=== PATIENT | female | born 1980 | race Caucasian/White ===

== ENCOUNTER 2022-05-20 20:00 | Day surgery (SDCO) | payer OTHER ==
[~2022-05-20] VITALS: Ht 163 cm; Wt 56.0 kg
[~2022-05-20 20:00] MED LIST: VIBRAMYCIN100 M1 PO
[2022-05-20 20:39] LABS: BASOPHIL 0.3 % (0-2); EOSINOPHIL 3.5 % (0-5); HCT 45.2 % (37.0-47.0); HGB 15.6 g/dl (12.5-16.0); LYMPHOCYTE 15.9 % (15-48); MCH 29.2 pg (25.0-31.0); MCHC 34.5 g/dL (32.0-36.0); MCV 84.5 fL (78.0-100.0); MONOCYTE 6.1 % (0-12); MPV 9.2 fL (6.0-9.5); NEUTROPHIL 73.7 % (41-80); NRBC 0; PLT 568 K/uL (150-400); RBC 5.35 M/uL (4.20-5.40); RDW 12.8 % (11.5-14.0); WBC 15.9 K/uL (4.0-10.5)
[2022-05-20 20:55] LABS: ALBUMIN 3.5 g/dL (3.4-5.0); BILIRUBIN - TOTAL 0.4 mg/dL (0.2-1.0); BUN/CREAT RATIO (CALC) 15.5 RATIO; CREATININE 0.97 mg/dL (0.51-0.95); GLOBULIN (CALCULATION) 4.4 g/dL; POTASSIUM 3.4 mmol/L (3.5-5.1); TOTAL PROTEIN 7.9 g/dL (6.4-8.2)
[2022-05-20 22:49] LABS: BILIRUBIN NEGATIVE (NEGATIVE); BLOOD 2+ Ery/uL (NEGATIVE); CLARITY CLEAR (CLEAR); COLOR YELLOW (YELLOW); GLUCOSE (U) NORMAL (NORMAL); LEUKOCYTES NEGATIVE Leu/uL (NEGATIVE); NITRITE NEGATIVE (NEGATIVE); PROTEIN NEGATIVE (NEGATIVE); SPECIFIC GRAVITY 1.015 (1.001-1.030); UROBILINOGEN 0.2 mg/dL (0.2-1.0); pH 5.5 (5.0-9.0)
[2022-05-20 22:57] LABS: BACTERIA TRACE
[2022-05-20 22:58] LABS: URINARY WBC RARE
[2022-05-20 22:59] LABS: CALCIUM OXALATE CRYSTALS TRACE; GRANULAR CASTS TRACE
[2022-05-21] MEDS ORDERED: ZYPREXA 5MG TABL5 MG PO (02:23)
[2022-05-21 06:40] LABS: BASOPHIL 0.4 % (0-2); EOSINOPHIL 7.2 % (0-5); HCT 37.3 % (37.0-47.0); HGB 12.9 g/dl (12.5-16.0); LYMPHOCYTE 28.8 % (15-48); MCH 30.1 pg (25.0-31.0); MCHC 34.6 g/dL (32.0-36.0); MCV 86.9 fL (78.0-100.0); MONOCYTE 7.2 % (0-12); MPV 9.4 fL (6.0-9.5); NRBC 0; PLT 412 K/uL (150-400); RBC 4.29 M/uL (4.20-5.40); RDW 12.9 % (11.5-14.0); WBC 9.4 K/uL (4.0-10.5)
[2022-05-21 07:33] LABS: ALBUMIN 2.8 g/dL (3.4-5.0); BILIRUBIN - TOTAL 0.4 mg/dL (0.2-1.0); BUN/CREAT RATIO (CALC) 16.5 RATIO; CREATININE 0.79 mg/dL (0.51-0.95); GLOBULIN (CALCULATION) 3.5 g/dL; MAGNESIUM 1.7 mg/dL (1.8-2.4); POTASSIUM 3.2 mmol/L (3.5-5.1); TOTAL PROTEIN 6.3 g/dL (6.4-8.2)
--- NOTE | 2022-05-21 15:04 | NUR ---
05/21 Ms. He lives at home with her spouse and 11 y/o daughter. She is independent in the home and community. Ms. He has been off from work frequently due to her father's illness. He is under the care of [facility]. she reports the family to meet their financial obligations. - Ms. He reports to experience depression / anxiety. She receives mental services though [facility] via tele-medicine. Counseling and medications are provided. Ms. He denies suicidal ideation, intentions, or attempts.
[2022-05-22 06:11] LABS: BASOPHIL 0.2 % (0-2); EOSINOPHIL 0.6 % (0-5); HCT 33.9 % (37.0-47.0); HGB 11.2 g/dl (12.5-16.0); LYMPHOCYTE 16.9 % (15-48); MCV 87.8 fL (78.0-100.0); NEUTROPHIL 78.6 % (41-80); NRBC 0; PLT 375 K/uL (150-400); RBC 3.86 M/uL (4.20-5.40); WBC 8.4 K/uL (4.0-10.5)
[2022-05-22 06:40] LABS: BUN/CREAT RATIO (CALC) 14.1 RATIO; C-REACTIVE PROTEIN 3.9 mg/dL (<=0.90); CREATININE 0.64 mg/dL (0.51-0.95); MAGNESIUM 2.2 mg/dL (1.8-2.4)
[2022-05-22 06:49] LABS: POTASSIUM 4.8 mmol/L (3.5-5.1)
[2022-05-22] MEDS ORDERED: PREDNISONE 10MG10 MG PO (14:08)
[2022-05-25 15:07] LABS: ADENOVIRUS F 40/41 Not Detected (Not Detected); ASTROVIRUS Not Detected (Not Detected); C DIFFICILE TOXIN A/B Not Detected (Not Detected); CAMPYLOBACTER Not Detected (Not Detected); CRYPTOSPORIDIUM Not Detected (Not Detected); CYCLOSPORA CAYETANENSIS Not Detected (Not Detected); ENTAMOEBA HISTOLYTICA Not Detected (Not Detected); ENTEROAGGREGATIVE E COLI Not Detected (Not Detected); ENTEROPATHOGENIC E COLI Not Detected (Not Detected); ENTEROTOXIGENIC E COLI Not Detected (Not Detected); GIARDIA LAMBLIA Not Detected (Not Detected); NOROVIRUS GI/GII Not Detected (Not Detected); PLESIOMONAS SHIGELLOIDES Not Detected (Not Detected); ROTAVIRUS A Not Detected (Not Detected); SALMONELLA Not Detected (Not Detected); SAPOVIRUS Not Detected (Not Detected); SHIGA-TOXIN-PRODUCING E COLI Not Detected (Not Detected); SHIGELLA/ENTEROINVASIVE E COLI Not Detected (Not Detected); VIBRIO Not Detected (Not Detected); VIBRIO CHOLERAE Not Detected (Not Detected); YERSINIA ENTEROCOLITICA Not Detected (Not Detected)
== END 2022-05-22 14:40 | disposition home or self-care (01) ==
LOC: FER 20:00 → FMS 05-21 00:06
PROVIDERS: Emergency Medicine; Nurse Practitioner; ADMIT Internal Medicine
DX: K63.5 Polyp of colon (principal); K29.70 Gastritis, unspecified, without bleeding; F41.9 Anxiety disorder, unspecified; F32.A Depression, unspecified
CPT/HCPCS: 36415; 80048; 80053; 81001; 82150; 83605; 83690; 83735; 84145; 85025; 86140; 87045; 87046; 87205; 94010; 94760; C9113; G0378; J1200; J2250; J2270; J2405; J2704; J2930; J3475; J3480; J7030; J7120; Q9967